=== PATIENT | male | born 1965 | race Caucasian/White ===

== ENCOUNTER 2021-02-09 13:55 | Day surgery (SDC) | payer BC ==
[2021-02-09] VITALS (11 sets, daily range): BP systolic 93–156; BP diastolic 56–87
[~2021-02-09] VITALS: Ht 176.5 cm; Wt 82.7 kg
[~2021-02-09 13:55] MED LIST: ASPI-1468 PO; CLIN150C2 PO; HYDR-3972 PO; IBUP-1985 PO; OMEP-50 PO; cefazolin/dext.iso 2gm/100ml IV ONE; famotidine 20mg tablet PO ONE; ringers solution, lacted 1,000 ML IV SCH
[2021-02-09 14:54] LABS: BASOPHILS # (AUTO) 0.1 X10'3 (0-0.2); BASOPHILS % (AUTO) 1.2 % (0-1); EOSINOPHILS # (AUTO) 0.3 X10'3 (0-0.9); EOSINOPHILS % (AUTO) 4.7 % (0-6); LYMPHOCYTES # (AUTO) 1.6 X10'3 (1.1-4.8); LYMPHOCYTES % (AUTO) 26.3 % (21-51); MEAN CORPUSCULAR HEMOGLOBIN 31.9 PG (27.0-31.0); MEAN CORPUSCULAR HGB CONC 33.8 g/dL (33.0-36.5); MEAN CORPUSCULAR VOLUME 94.3 FL (78-98); MEAN PLATELET VOLUME 7.7 FL (7.4-10.4); MONOCYTES # (AUTO) 0.5 X10'3 (0-0.9); MONOCYTES % (AUTO) 9.2 % (2-12); NEUTROPHILS # (AUTO) 3.5 X10'3 (1.8-7.7); NEUTROPHILS % (AUTO) 58.6 % (42-75); PRE OP HEMATOCRIT 42.4 % (42.0-52.0); PRE OP HEMOGLOBIN 14.3 g/dL (14.0-17.9); PRE OP PLATELET COUNT 297 X10'3 (140-440); RED BLOOD COUNT 4.49 X10'6 (4.70-6.10); RED CELL DISTRIBUTION WIDTH 14.2 % (11.5-14.5)
[2021-02-09 15:00] LABS: PRE OP INR 1.1 INR; PRE OP PROTIME 11.1 SECONDS (9.0-12.0)
--- NOTE | 2021-02-09 15:02 | NUR ---
ASA 325 MG R/T SURGERY ON 01/20. LAST DOSE THIS AM. Addendum: 02/09/21 at 1511 by Jenna Salvador RN Amended: Links added.
[2021-02-09 15:06] LABS: ALBUMIN 3.8 G/DL (3.4-5.0); ALBUMIN/GLOBULIN RATIO 0.9 (1.1-1.5); ALKALINE PHOSPHATASE 91 IU/L (46-116); BLOOD UREA NITROGEN 8 MG/DL (7-18); CALCIUM 8.8 MG/DL (8.5-10.1); CHLORIDE 106 MMOL/L (99-107); PRE OP ALT 19 U/L (30-65); PRE OP ANION GAP 13 (8-16); PRE OP AST 25 U/L (10-37); PRE OP BILIRUB, TOTAL 0.8 MG/DL (0.0-1.0); PRE OP GLUCOSE 81 MG/DL (70-104); PRE OP POTASSIUM 3.8 MMOL/L (3.4-5.1); PRE OP SODIUM 144 MMOL/L (135-145); TOTAL CARBON DIOXIDE 24.7 MMOL/L (24-32); TOTAL PROTEIN 7.9 G/DL (6.4-8.2); eGFR > 90 ML/MIN
--- NOTE | 2021-02-09 16:10 | NUR ---
received report from rodolfo rodrigues in recovery
[2021-02-09] MEDS ORDERED: HYDROcodone/acetaminophen 10/325mg tab PO PRN ×4 (16:15→23:10)
--- NOTE | 2021-02-09 17:19 | NUR ---
emma reynolds told me to keep the abx clamped for or to run when pt goes to surgery
--- NOTE | 2021-02-09 18:21 | NUR ---
gave report to rodolfo aldana
--- NOTE | 2021-02-09 18:40 | NUR ---
Patient in room ORTHO 4010. I have received report from Nila DOWLING and had the opportunity to ask questions and assume patient care.
[2021-02-09] MEDS ORDERED: morphine 4 MG/ML inj SYRINge IV PRN (21:30)
[2021-02-09] MEDS ORDERED: proCHLORperazine 10 MG/2 ml inj IV PRN (21:30)
[2021-02-09] MEDS ORDERED: ringers solution, lacted 1,000 ML IV SCH (21:30)
[2021-02-09] MEDS ORDERED: meperidine/PF 25mg/ml syringe IV PRN ×3 (21:30)
[2021-02-09] MEDS ORDERED: morphine 2 MG/ML inj. syringe IV PRN (21:30)
[2021-02-09] MEDS ORDERED: ondansetron/PF 4mg/2ml inj IV PRN ×2 (21:30→23:10)
[2021-02-09] MEDS ORDERED: BUPIVAcaine/PF 7.5mg/ml (0.75%) 10ml vial ONE (21:54)
[2021-02-09] MEDS ORDERED: MIDAZolam 1 MG/ML 5ML VIAL ONE (21:56)
[2021-02-09] MEDS ORDERED: fentaNYL/PF 50MCG/1 ML 2ML syringe ONE (21:56)
[2021-02-09] MEDS ORDERED: vancomycin 1,000mg inj ONE (22:23)
--- NOTE | 2021-02-09 22:53 | NUR ---
Received from OR via , accompanied by Anesthesiologist DR MARCIAL and report given by Anesthesiolgist. PT PRESENTS WITH 20G RIGHT WRIST, VSS, DRESSING TO RIGHT KNEE DRY AND INTACT. Addendum: 02/09/21 at 2300 by Saundra Quezada RN, RN Amended: Links added.
[2021-02-09] MEDS ORDERED: magnesium hydroxide 30ml (MOM) UD suspension PO PRN (23:10)
[2021-02-09] MEDS ORDERED: HYDROmorphone inj. 0.5 MG/0.5 ML DISP.SYRIN IV PRN (23:10)
[2021-02-09] MEDS ORDERED: acetaminophen 325mg tablet PO PRN (23:10)
[2021-02-09] MEDS ORDERED: bisacodyl 10mg suppository rectal RC PRN (23:10)
[2021-02-09] MEDS ORDERED: HYDROmorphone 1 mg/ml syringe IV PRN (23:10)
[2021-02-09] MEDS ORDERED: ibuprofen 200mg tablet PO PRN (23:10)
[2021-02-09] MEDS ORDERED: diphenhydrAMINE 25mg capsule PO PRN ×2 (23:10)
--- NOTE | 2021-02-09 23:57 | NUR ---
Received report from computer application developerJOSEY Arguello.
[2021-02-10] VITALS (11 sets, daily range): BP systolic 106–125; BP diastolic 61–80
--- NOTE | 2021-02-10 00:03 | NUR ---
PT TRANSPORTED BACK TO PT ROOM 4010 WITH HELP OF roomlinx AND BRIANA DOWLING. RITA DOWLING AT BEDSIDE TO RECEIVE REPORT WITH NO FURTHER QUESTIONS AT THIS TIME. PT VSS. Addendum: 02/10/21 at 0018 by Saundra Quezada RN RN Amended: Links added.
[2021-02-10] MEDS: ceFAZolin/D5W- 1GM premix 50 ML IV SCH ×2 (00:42→07:33)
[2021-02-10] MEDS: potassium cl 20mEq in 1/2 NS 1,000 ML IV SCH ×2 (00:43→07:10)
[2021-02-10] MEDS: clindamycin 150mg capsule PO SCH ×2 (02:07→07:33)
[2021-02-10] MEDS: acetaminophen 325mg tablet PO SCH ×2 (02:08→07:33)
--- NOTE | 2021-02-10 06:06 | NUR ---
Problems reprioritized. Patient report given, questions answered & plan of care reviewed with Ryne DOWLING.
--- NOTE | 2021-02-10 06:12 | NUR ---
Patient in room ORTH[facility] 4010. I have received report from JOSEY Richards and had the opportunity to ask questions and assume patient care.
[2021-02-10 07:02] LABS: BASOPHILS # (AUTO) 0.1 X10'3 (0-0.2); BASOPHILS % (AUTO) 1.1 % (0-1); EOSINOPHILS # (AUTO) 0.3 X10'3 (0-0.9); EOSINOPHILS % (AUTO) 6.1 % (0-6); HEMATOCRIT 39.7 % (42.0-52.0); HEMOGLOBIN 13.6 g/dl (14.0-17.9); LYMPHOCYTES # (AUTO) 1.3 X10'3 (1.1-4.8); LYMPHOCYTES % (AUTO) 25.9 % (21-51); MEAN CORPUSCULAR HEMOGLOBIN 32.3 PG (27.0-31.0); MEAN CORPUSCULAR HGB CONC 34.4 g/dL (33.0-36.5); MEAN PLATELET VOLUME 8.1 FL (7.4-10.4); MONOCYTES # (AUTO) 0.5 X10'3 (0-0.9); MONOCYTES % (AUTO) 9.6 % (2-12); NEUTROPHILS # (AUTO) 2.9 X10'3 (1.8-7.7); NEUTROPHILS % (AUTO) 57.3 % (42-75); PLATELET COUNT 275 X10'3 (140-440); RED BLOOD COUNT 4.22 X10'6 (4.70-6.10); RED CELL DISTRIBUTION WIDTH 13.9 % (11.5-14.5)
[2021-02-10 07:33] LABS: ANION GAP 7 (8-16); CHLORIDE 105 MMOL/L (99-107); POTASSIUM 4.6 MMOL/L (3.5-5.1); SODIUM 140 MMOL/L (135-145); TOTAL CARBON DIOXIDE 28.1 MMOL/L (24-32)
[2021-02-10] MEDS ORDERED: vancomycin/NS 1 GM ADD-VANTAGE 250 ML IV SCH (08:00)
[2021-02-10] MEDS ORDERED: aspirin 325mg tablet, delayed-release (Ecotrin) PO SCH (08:00)
[2021-02-10] MEDS ORDERED: aspirin 325mg tablet PO SCH (08:30)
[2021-02-10] MEDS ORDERED: CLIN-156 PO (09:45)
--- NOTE | 2021-02-10 10:27 | NUR ---
Patient alert and oriented with no s/s of acute distress. Denies any pain or discomfort at this time and no complaints. Discussed with patient discharge teaching, new prescription, how to care for VONNIE drain. Patient in hurry to leave states daughter in law here with baby in car and does not want them wait and also has animals that need to be fed. But patient verbalizes understanding of teaching and able to return demonstrate emptying of VONNIE drain and states has no questions regarding discharge teaching. He states he was instructed by Blessing Fisher "to not touch dressing until Sunday." Patient dc'd with all personal belongings via wheelchair accompanied by x2 staff. Patient daughter in law ehre to moss picker.
[2021-02-10] MEDS ORDERED: lactobacillus rhamnosus 10,000 MMU CELLS/CAPSULE PO SCH (20:00)
[2021-02-10] MEDS ORDERED: sennosides 8.6mg tablet PO SCH (21:00)
[2021-02-11] MEDS ORDERED: acetaminophen 325mg tablet PO PRN (23:10)
== END 2021-02-10 10:32 | disposition home or self-care (01) ==
LOC: PAS 13:55 → ORTHO 4S 18:13 → UNDOADMIN 23:07 → PAS 23:22
PROVIDERS: ATTEND Orthopaedic Surgery
DX: T81.31XA Disruption of external operation (surgical) wound, not elsewhere classified, initial encounter (principal); M17.11 Unilateral primary osteoarthritis, right knee; F17.220 Nicotine dependence, chewing tobacco, uncomplicated; Z72.89 Other problems related to lifestyle; Z79.01 Long term (current) use of anticoagulants; Z79.899 Other long term (current) drug therapy; Z98.890 Other specified postprocedural states; Z79.82 Long term (current) use of aspirin; Y83.2 Surgical operation with anastomosis, bypass or graft as the cause of abnormal reaction of the patient, or of later complication, without mention of misadventure at the time of the procedure; Y92.89 Other specified places as the place of occurrence of the external cause
CPT/HCPCS: 27310; 36415; 80051; 80053; 82948; 85025; 85610; 85730; 87081; 87426; 93005; A6223; J0690; J2250; J3010; J3370; J3490; J7120; A4215; A6402; A6446; A6449; A7000; G0378; J3480

== ENCOUNTER 2021-04-15 12:43 | Inpatient (IN) | payer BC ==
[~2021-04-15] VITALS: Ht 175.3 cm; Wt 84.3 kg
[~2021-04-15 12:43] MED LIST changes: -ASPI-1468 PO; -CLIN150C2 PO; -IBUP-1985 PO; -OMEP-50 PO; -cefazolin/dext.iso 2gm/100ml IV ONE; -famotidine 20mg tablet PO ONE; -ringers solution, lacted 1,000 ML IV SCH
[2021-04-15 18:10] VITALS: BP 138/83
--- NOTE | 2021-04-15 18:10 | NUR ---
Patient walked up to unit by nursing supervisor screen making. Patient placed into bed, bed locked & low. Call light placed within reach.
[2021-04-15] MEDS ORDERED: acetaminophen 325mg tablet PO PRN (19:10)
[2021-04-15] MEDS ORDERED: ringers solution, lactated 500ml IV solution IV SCH (19:35)
[2021-04-15] MEDS: ringers solution, lacted 1,000 ML IV SCH (21:43)
[2021-04-15] MEDS: HYDROcodone/acetaminophen 5mg/325mg tablet PO PRN (21:43)
[2021-04-15 22:00] VITALS: BP 136/85
[2021-04-15] MEDS ORDERED: ringers solution, lacted 1,000 ML IV ONE (22:45)
[2021-04-16] VITALS (14 sets, daily range): BP systolic 109–143; BP diastolic 65–97
[2021-04-16] MEDS: HYDROcodone/acetaminophen 5mg/325mg tablet PO PRN ×2 (02:22→05:52)
[2021-04-16] MEDS ORDERED: famotidine 20mg tablet PO ONE (06:00)
[2021-04-16 06:12] LABS: BASOPHILS % (AUTO) 0.5 % (0-1); EOSINOPHILS # (AUTO) 0.2 X10'3 (0-0.9); EOSINOPHILS % (AUTO) 3.2 % (0-6); LYMPHOCYTES # (AUTO) 1.3 X10'3 (1.1-4.8); MEAN CORPUSCULAR HEMOGLOBIN 30.2 PG (27.0-31.0); MEAN CORPUSCULAR HGB CONC 34.1 g/dL (33.0-36.5); MEAN CORPUSCULAR VOLUME 88.7 FL (78-98); MEAN PLATELET VOLUME 7.8 FL (7.4-10.4); MONOCYTES # (AUTO) 0.7 X10'3 (0-0.9); MONOCYTES % (AUTO) 10.1 % (2-12); NEUTROPHILS # (AUTO) 4.4 X10'3 (1.8-7.7); NEUTROPHILS % (AUTO) 66.2 % (42-75); PRE OP PLATELET COUNT 338 X10'3 (140-440); RED BLOOD COUNT 4.63 X10'6 (4.70-6.10)
--- NOTE | 2021-04-16 06:12 | NUR ---
Problems reprioritized. Patient report given, questions answered & plan of care reviewed with Adama DOWLING.
[2021-04-16] MEDS ORDERED: tranexamic acid 650mg tablet PO ONE (06:30)
[2021-04-16 06:37] LABS: ALANINE AMINOTRANSFERASE 25 U/L (12-78); ALBUMIN 3.1 G/DL (3.4-5.0); ALBUMIN/GLOBULIN RATIO 0.6 (1.1-1.5); ALKALINE PHOSPHATASE 116 IU/L (46-116); ANION GAP 8 (8-16); ASPARTATE AMINO TRANSFERASE 23 U/L (10-37); BILIRUBIN,TOTAL 0.5 MG/DL (0.1-1.0); BLOOD UREA NITROGEN 6 MG/DL (7-18); BUN/CREATININE RATIO 8.6 (5.4-32.0); CALCIUM 8.7 MG/DL (8.5-10.1); CHLORIDE 106 MMOL/L (99-107); GLUCOSE 85 MG/DL (70-104); POTASSIUM 4.7 MMOL/L (3.5-5.1); SODIUM 143 MMOL/L (135-145); TOTAL CARBON DIOXIDE 29.5 MMOL/L (24-32); TOTAL PROTEIN 7.9 G/DL (6.4-8.2); eGFR > 90 ML/MIN
[2021-04-16] MEDS ORDERED: ketorolac trometh. 30mg/ml inj. ONE (06:40)
[2021-04-16] MEDS ORDERED: vancomycin 1,000mg inj ONE (06:40)
[2021-04-16] MEDS ORDERED: ROPIVAcaine 0.5% (5mg/ml) 30ml vial ONE ×2 (06:40→10:22)
[2021-04-16] MEDS ORDERED: tobramycin sulfate 1.2gm vial IR ONE ×2 (06:43→08:54)
[2021-04-16] MEDS: ringers solution, lacted 1,000 ML IV SCH ×2 (06:50→16:50)
[2021-04-16] MEDS ORDERED: MIDAZolam 1mg/ml 10ml vial ONE (07:59)
[2021-04-16] MEDS ORDERED: fentaNYL/PF 50MCG/1 ML 2ML syringe ONE (07:59)
[2021-04-16] MEDS ORDERED: Cefazolin 2GM/100ML NS IVPB 100 ML IV ONE (08:10)
[2021-04-16] MEDS ORDERED: ROPIVAcaine 0.2% (10 MG/5 ML) BOLUS INJECTION ADDCANAL PRN (08:25)
[2021-04-16] MEDS ORDERED: meperidine/PF 25mg/ml syringe IV PRN ×3 (08:25)
[2021-04-16] MEDS ORDERED: ondansetron/PF 4mg/2ml inj IV PRN ×2 (08:25→10:30)
[2021-04-16] MEDS ORDERED: morphine 4 MG/ML inj SYRINge IV PRN (08:25)
[2021-04-16] MEDS ORDERED: ringers solution, lacted 1,000 ML IV SCH (08:25)
[2021-04-16] MEDS ORDERED: proCHLORperazine 10 MG/2 ml inj IV PRN (08:25)
[2021-04-16] MEDS: ROPIVAcaine 0.2%/PF PUMP/bolus 545 ML ADDCANAL SCH (08:25)
[2021-04-16] MEDS ORDERED: morphine 2 MG/ML inj. syringe IV PRN (08:25)
[2021-04-16] MEDS ORDERED: cefazolin/dext.iso 2gm/100ml 100 ML IV ONE (08:29)
[2021-04-16 10:16] LABS: LYMPHOCYTES,BODY FLUID 5 %; MONOCYTES,BODY FLUID 2 %; NEUTROPHILS,BODY FLUID 93 %
[2021-04-16 10:17] LABS: BF RBC COUNT 24000 /CU MM; BF WBC COUNT 68500 /CU MM (0-1000); BFAPPEAR CLOUDY; BFCOLOR AMBER; BFVOLUME 13 ML
[2021-04-16] MEDS ORDERED: dexamethasone sod phosphate 4mg/ml inj. ONE (10:23)
--- NOTE | 2021-04-16 10:27 | NUR ---
PT AWAKE ALERT VSS NO DISTRESS DENIES PAIN, SPINAL LEVEL CHECK L1 UNABLE TO MOVE LOWER EXTR. CONT TO MONITOR Addendum: 04/16/21 at 1046 by Sabrina Parkinson RN Amended: Links added.
[2021-04-16] MEDS ORDERED: bisacodyl 10mg suppository rectal RC PRN (10:30)
[2021-04-16] MEDS ORDERED: diphenhydrAMINE 25mg capsule PO PRN ×2 (10:30)
[2021-04-16] MEDS ORDERED: oxyCODONE IR 5mg (immed. release) tablet PO PRN ×2 (10:30)
[2021-04-16] MEDS ORDERED: HYDROmorphone inj. 0.5 MG/0.5 ML DISP.SYRIN IV PRN (10:30)
[2021-04-16] MEDS ORDERED: acetaminophen 325mg tablet PO PRN (10:30)
[2021-04-16] MEDS ORDERED: HYDROmorphone 1 mg/ml syringe IV PRN (10:30)
[2021-04-16] MEDS ORDERED: magnesium hydroxide 30ml (MOM) UD suspension PO PRN (10:30)
--- NOTE | 2021-04-16 10:51 | NUR ---
PT ALERT VSS NO DISTRESS ASKING WHEN IS LUNCH, VONNIE EMPTIED 75ML BLOODY DRAINAGE, VALLE CATH EMPTY 500ML CLEAR YELLOW URINE, SPINAL LEVEL L2. MEETS CRITERIA TO DC TO ROOM REPORT CALLED. Addendum: 04/16/21 at 1053 by Sabrina Parkinson RN Amended: Links added.
[2021-04-16] MEDS: potassium cl 20mEq in 1/2 NS 1,000 ML IV SCH (14:56)
[2021-04-16] MEDS: acetaminophen 325mg tablet PO SCH ×2 (14:56→20:11)
[2021-04-16] MEDS: ceFAZolin/D5W- 1GM premix 50 ML IV SCH (16:09)
--- NOTE | 2021-04-16 18:49 | NUR ---
RC'D REPORT FROM DARLYN AND ASSUMED CARE OF PATIENT
[2021-04-16] MEDS ORDERED: vancomycin/NS 1 GM ADD-VANTAGE 250 ML IV SCH (20:00)
[2021-04-16] MEDS: sennosides 8.6mg tablet PO SCH (20:11)
[2021-04-17] MEDS: ceFAZolin/D5W- 1GM premix 50 ML IV SCH
[2021-04-17] MEDS: HYDROcodone/acetaminophen 5mg/325mg tablet PO PRN (00:14)
[2021-04-17 02:00] VITALS: BP 122/68
[2021-04-17] MEDS: acetaminophen 325mg tablet PO SCH ×4 (02:00→20:00)
[2021-04-17] MEDS: potassium cl 20mEq in 1/2 NS 1,000 ML IV SCH ×4 (02:25→16:11)
[2021-04-17] MEDS: ringers solution, lacted 1,000 ML IV SCH ×3 (02:50→22:50)
[2021-04-17] MEDS: HYDROcodone/acetaminophen 10/325mg tab PO PRN ×3 (05:21→20:29)
[2021-04-17 06:00] VITALS: BP 132/77
--- NOTE | 2021-04-17 06:40 | NUR ---
Patient in room ORTH[facility] 4016. I have received report from Alina DOWLING and had the opportunity to ask questions and assume patient care.
[2021-04-17 06:56] LABS: BASOPHILS % (AUTO) 0.2 % (0-1); EOSINOPHILS % (AUTO) 0.1 % (0-6); HEMATOCRIT 37.2 % (42.0-52.0); HEMOGLOBIN 12.8 g/dl (14.0-17.9); LYMPHOCYTES # (AUTO) 0.9 X10'3 (1.1-4.8); MEAN CORPUSCULAR HEMOGLOBIN 30.6 PG (27.0-31.0); MEAN CORPUSCULAR HGB CONC 34.5 g/dL (33.0-36.5); MEAN CORPUSCULAR VOLUME 88.7 FL (78-98); MEAN PLATELET VOLUME 8.2 FL (7.4-10.4); MONOCYTES # (AUTO) 0.3 X10'3 (0-0.9); MONOCYTES % (AUTO) 3.2 % (2-12); NEUTROPHILS # (AUTO) 9.2 X10'3 (1.8-7.7); NEUTROPHILS % (AUTO) 87.5 % (42-75); PLATELET COUNT 360 X10'3 (140-440); RED BLOOD COUNT 4.19 X10'6 (4.70-6.10); RED CELL DISTRIBUTION WIDTH 13.1 % (11.5-14.5); WHITE BLOOD COUNT 10.5 X10'3 (4.5-11.0)
[2021-04-17 07:08] LABS: ANION GAP 8 (8-16); CHLORIDE 108 MMOL/L (99-107); POTASSIUM 4.2 MMOL/L (3.5-5.1); SODIUM 144 MMOL/L (135-145); TOTAL CARBON DIOXIDE 28.5 MMOL/L (24-32)
[2021-04-17] MEDS: aspirin 325mg tablet PO SCH (08:19)
[2021-04-17] MEDS: VANCOmycin 1250MG/NS 250ml Bag 250 ML IV SCH ×2 (08:19→20:28)
[2021-04-17 10:00] VITALS: BP 122/72
--- NOTE | 2021-04-17 11:01 | NUR ---
got a call from lab, pt knee fluid had gram negative rods wont be able to identify for couple of days , has been notified
[2021-04-17 18:00] VITALS: BP 135/83
--- NOTE | 2021-04-17 18:13 | NUR ---
Problems reprioritized. Patient report given, questions answered & plan of care reviewed with Marion DOWLING.
--- NOTE | 2021-04-17 18:31 | NUR ---
Patient in room ORTH[facility] 4016. I have received report from JOSEY PEDERSEN and had the opportunity to ask questions and assume patient care.
[2021-04-17] MEDS: sennosides 8.6mg tablet PO SCH (20:28)
[2021-04-17] MEDS: lactobacillus rhamnosus 10,000 MMU CELLS/CAPSULE PO SCH (20:28)
[2021-04-17] MEDS: celeCOXIB 100mg capsule PO SCH (20:29)
[2021-04-17 22:00] VITALS: BP 137/91
[2021-04-18] MEDS: acetaminophen 325mg tablet PO SCH ×2 (02:00→07:47)
[2021-04-18] MEDS: potassium cl 20mEq in 1/2 NS 1,000 ML IV SCH (02:30)
[2021-04-18] MEDS: HYDROcodone/acetaminophen 10/325mg tab PO PRN ×3 (05:13→20:45)
[2021-04-18 06:10] VITALS: BP 135/77
--- NOTE | 2021-04-18 06:45 | NUR ---
Patient in room ORTH[facility] 4016. I have received report from Marion DOWLING and had the opportunity to ask questions and assume patient care.
[2021-04-18] MEDS ORDERED: VANCOMYCIN LEVEL IV ONE (07:30)
[2021-04-18] MEDS: celeCOXIB 100mg capsule PO SCH ×2 (07:46→20:45)
[2021-04-18] MEDS: aspirin 325mg tablet PO SCH (07:46)
[2021-04-18] MEDS: lactobacillus rhamnosus 10,000 MMU CELLS/CAPSULE PO SCH ×2 (07:46→20:45)
[2021-04-18] MEDS: VANCOmycin 1250MG/NS 250ml Bag 250 ML IV SCH (07:47)
[2021-04-18 08:17] LABS: BASOPHILS # (AUTO) 0.1 X10'3 (0-0.2); BASOPHILS % (AUTO) 0.8 % (0-1); EOSINOPHILS # (AUTO) 0.2 X10'3 (0-0.9); EOSINOPHILS % (AUTO) 2.4 % (0-6); HEMATOCRIT 37.4 % (42.0-52.0); HEMOGLOBIN 12.5 g/dl (14.0-17.9); LYMPHOCYTES % (AUTO) 23.8 % (21-51); MEAN CORPUSCULAR HEMOGLOBIN 29.8 PG (27.0-31.0); MEAN CORPUSCULAR HGB CONC 33.3 g/dL (33.0-36.5); MEAN CORPUSCULAR VOLUME 89.4 FL (78-98); MEAN PLATELET VOLUME 7.8 FL (7.4-10.4); MONOCYTES # (AUTO) 0.9 X10'3 (0-0.9); MONOCYTES % (AUTO) 10.4 % (2-12); NEUTROPHILS # (AUTO) 5.3 X10'3 (1.8-7.7); NEUTROPHILS % (AUTO) 62.6 % (42-75); PLATELET COUNT 350 X10'3 (140-440); RED BLOOD COUNT 4.18 X10'6 (4.70-6.10); RED CELL DISTRIBUTION WIDTH 13.4 % (11.5-14.5); WHITE BLOOD COUNT 8.5 X10'3 (4.5-11.0)
[2021-04-18] MEDS: ringers solution, lacted 1,000 ML IV SCH ×2 (08:50→18:50)
[2021-04-18 10:00] VITALS: BP 121/76
[2021-04-18] MEDS ORDERED: acetaminophen 325mg tablet PO PRN (10:30)
[2021-04-18] MEDS: cefepime 2g/NS 100ml ADVANTAGE 100 ML IV SCH ×2 (16:16→23:54)
[2021-04-18 18:00] VITALS: BP 139/87
[2021-04-18] MEDS: sennosides 8.6mg tablet PO SCH (21:00)
[2021-04-18 22:00] VITALS: BP 128/71
[2021-04-19] MEDS: HYDROcodone/acetaminophen 10/325mg tab PO PRN ×2 (02:45→14:06)
[2021-04-19] MEDS: ROPIVAcaine 0.2%/PF PUMP/bolus 545 ML ADDCANAL SCH (05:25)
[2021-04-19 06:00] VITALS: BP 116/78
--- NOTE | 2021-04-19 06:35 | NUR ---
Problems reprioritized. Patient report given, questions answered & plan of care reviewed with JOSEY BUTLER.
[2021-04-19 07:00] LABS: BASOPHILS # (AUTO) 0.1 X10'3 (0-0.2); BASOPHILS % (AUTO) 0.9 % (0-1); EOSINOPHILS # (AUTO) 0.2 X10'3 (0-0.9); EOSINOPHILS % (AUTO) 2.8 % (0-6); HEMATOCRIT 36.3 % (42.0-52.0); HEMOGLOBIN 12.1 g/dl (14.0-17.9); LYMPHOCYTES # (AUTO) 1.6 X10'3 (1.1-4.8); LYMPHOCYTES % (AUTO) 19.2 % (21-51); MEAN CORPUSCULAR HEMOGLOBIN 30.3 PG (27.0-31.0); MEAN CORPUSCULAR HGB CONC 33.4 g/dL (33.0-36.5); MEAN CORPUSCULAR VOLUME 90.7 FL (78-98); MEAN PLATELET VOLUME 7.9 FL (7.4-10.4); MONOCYTES % (AUTO) 11.6 % (2-12); NEUTROPHILS # (AUTO) 5.6 X10'3 (1.8-7.7); NEUTROPHILS % (AUTO) 65.5 % (42-75); PLATELET COUNT 350 X10'3 (140-440); RED CELL DISTRIBUTION WIDTH 13.6 % (11.5-14.5); WHITE BLOOD COUNT 8.5 X10'3 (4.5-11.0)
[2021-04-19 07:20] LABS: ALBUMIN 2.8 G/DL (3.4-5.0); ANION GAP 6 (8-16); BLOOD UREA NITROGEN 5 MG/DL (7-18); BUN/CREATININE RATIO 6.1 (5.4-32.0); CALCIUM 8.9 MG/DL (8.5-10.1); CHLORIDE 107 MMOL/L (99-107); CREATININE 0.82 MG/DL (0.60-1.10); GLUCOSE 97 MG/DL (70-104); POTASSIUM 4.1 MMOL/L (3.5-5.1); SODIUM 143 MMOL/L (135-145); TOTAL CARBON DIOXIDE 30.2 MMOL/L (24-32); eGFR > 90 ML/MIN
[2021-04-19] MEDS ORDERED: ASPI-1 PO (07:27)
[2021-04-19] MEDS: lactobacillus rhamnosus 10,000 MMU CELLS/CAPSULE PO SCH (08:16)
[2021-04-19] MEDS: aspirin 325mg tablet PO SCH (08:16)
[2021-04-19] MEDS: celeCOXIB 100mg capsule PO SCH (08:16)
[2021-04-19] MEDS: cefepime 2g/NS 100ml ADVANTAGE 100 ML IV SCH (08:17)
[2021-04-19] MEDS: ringers solution, lacted 1,000 ML IV SCH (08:22)
[2021-04-19 10:00] VITALS: BP 122/81
[2021-04-19] MEDS ORDERED: ciprofloxacin 250mg tablet PO SCH (10:22)
[2021-04-19] MEDS ORDERED: CIPR750T4 PO (14:30)
[2021-04-20] MEDS ORDERED: VANCOMYCIN LEVEL IV ONE (07:30)
== END 2021-04-19 15:30 | disposition home or self-care (01) | DRG 464 ==
LOC: UNDOADMIN 18:14 → ORTHO 4S 18:14
PROVIDERS: ADMIT Orthopaedic Surgery; ATTEND Orthopaedic Surgery
PROC: 0SHC08Z Insertion of Spacer into Right Knee Joint, Open Approach (ICD-10-PCS; 2021-04-16)
PROC: 3E0T3BZ Introduction of Anesthetic Agent into Peripheral Nerves and Plexi, Percutaneous Approach (ICD-10-PCS; 2021-04-16)
PROC: 3E0T33Z Introduction of Anti-inflammatory into Peripheral Nerves and Plexi, Percutaneous Approach (ICD-10-PCS; 2021-04-16)
PROC: 0SPC0JZ Removal of Synthetic Substitute from Right Knee Joint, Open Approach (ICD-10-PCS; principal; 2021-04-16 07:50)
DX: T84.53XA Infection and inflammatory reaction due to internal right knee prosthesis, initial encounter (principal); D62 Acute posthemorrhagic anemia; M65.861 Other synovitis and tenosynovitis, right lower leg; B96.5 Pseudomonas (aeruginosa) (mallei) (pseudomallei) as the cause of diseases classified elsewhere; Z96.651 Presence of right artificial knee joint; Y83.1 Surgical operation with implant of artificial internal device as the cause of abnormal reaction of the patient, or of later complication, without mention of misadventure at the time of the procedure; Y92.89 Other specified places as the place of occurrence of the external cause; Z79.899 Other long term (current) drug therapy
CPT/HCPCS: 36415; 80048; 80051; 80053; 80202; 82948; 85025; 85651; 86140; 87070; 87075; 87077; 87081; 87176; 87186; 87635; 89051; 93005; 97116; 97161; 97530; G0378; J0690; J0692; J1100; J1885; J2250; J2795; J3010; J3260; J3370; J3480; J7120

== ENCOUNTER 2023-10-08 10:59 | Inpatient (IN) | payer BC ==
[2023-10-08] VITALS (17 sets, daily range): BP systolic 90–138; BP diastolic 54–86; PULSE 42–60; RESP 14–17; TEMP 96.5–98.4; O2SAT 63–99
[~2023-10-08] VITALS: Ht 175.3 cm; Wt 84.4 kg
[2023-10-08] MEDS: DOCUMENT DATE & TIME OF BETA-BLOCKER PO ONE (05:30)
[2023-10-08] MEDS: cefazolin 2gm/D5W 100mL 100 ML IV ONE (05:30)
[2023-10-08] MEDS: ringers solution, lacted 1,000 ML IV SCH ×3 (05:30→16:40)
[~2023-10-08 10:59] MED LIST changes: +BUPIVAcaine/PF 2.5mg/ml (0.25%) 10ml vial ONE; -HYDR-3972 PO; +METO-539 PO; +VALS80TA2 PO
[2023-10-08] MEDS: famotidine 20mg tablet PO ONE (12:50)
[2023-10-08 13:12] LABS: BASOPHILS # (AUTO) 0.1 X10'3 (0-0.2); BASOPHILS % (AUTO) 0.8 % (0-1); EOSINOPHILS # (AUTO) 0.4 X10'3 (0-0.9); EOSINOPHILS % (AUTO) 5.4 % (0-6); LYMPHOCYTES # (AUTO) 1.7 X10'3 (1.1-4.8); LYMPHOCYTES % (AUTO) 21.7 % (21-51); MEAN CORPUSCULAR HEMOGLOBIN 30.4 PG (27.0-31.0); MEAN CORPUSCULAR HGB CONC 33.2 g/dL (33.0-36.5); MEAN CORPUSCULAR VOLUME 91.4 FL (78-98); MEAN PLATELET VOLUME 7.6 FL (7.4-10.4); MONOCYTES # (AUTO) 0.7 X10'3 (0-0.9); MONOCYTES % (AUTO) 8.4 % (2-12); NEUTROPHILS # (AUTO) 5.1 X10'3 (1.8-7.7); NEUTROPHILS % (AUTO) 63.7 % (42-75); PRE OP HEMATOCRIT 42.8 % (42.0-52.0); PRE OP HEMOGLOBIN 14.2 g/dL (14.0-17.9); PRE OP PLATELET COUNT 332 X10'3 (140-440); PRE OP WHITE BLOOD COUNT 7.9 10'3 (4.8-10.8); RED BLOOD COUNT 4.68 X10'6 (4.70-6.10); RED CELL DISTRIBUTION WIDTH 13.4 % (11.5-14.5)
[2023-10-08] MEDS: tranexamic acid 650mg tablet PO ONE (13:12)
[2023-10-08 13:45] LABS: ALBUMIN 3.3 G/DL (3.4-5.0); ALBUMIN/GLOBULIN RATIO 0.6 (1.1-1.5); ALKALINE PHOSPHATASE 97 IU/L (46-116); BLOOD UREA NITROGEN 12 MG/DL (7-18); C-REACTIVE PROTEIN 4.34 MG/DL (0.0-0.5); CALCIUM 9.6 MG/DL (8.5-10.1); CHLORIDE 105 MMOL/L (99-107); CREATININE 0.86 MG/DL (0.60-1.10); PRE OP ALT 25 U/L (30-65); PRE OP ANION GAP 11 (8-16); PRE OP AST 22 U/L (10-37); PRE OP BILIRUB, TOTAL 0.4 MG/DL (0.0-1.0); PRE OP GLUCOSE 83 MG/DL (70-104); PRE OP POTASSIUM 3.9 MMOL/L (3.4-5.1); PRE OP SODIUM 143 MMOL/L (135-145); TOTAL CARBON DIOXIDE 26.7 MMOL/L (24-32); TOTAL PROTEIN 8.4 G/DL (6.4-8.2); eCRCL 95 ML/MIN; eGFR > 90 ML/MIN
[2023-10-08] MEDS ORDERED: ketorolac trometh. 30mg/ml inj. ONE (14:19)
[2023-10-08] MEDS ORDERED: ROPIVAcaine 0.5% (5mg/ml) 30ml vial ONE ×3 (14:19→17:10)
[2023-10-08] MEDS ORDERED: vancomycin 1,000mg inj ONE (15:31)
[2023-10-08] MEDS ORDERED: tobramycin sulfate 1.2gm vial ONE (15:31)
[2023-10-08] MEDS ORDERED: cloNIDine hcl/PF 100mcg/ml inj ONE (15:35)
[2023-10-08] MEDS ORDERED: labetalol 20mg/4ml (5mg/ml) syringe IV PRN (15:40)
[2023-10-08] MEDS ORDERED: ondansetron/PF 4mg/2ml inj IV PRN ×2 (15:40→16:40)
[2023-10-08] MEDS ORDERED: morphine 2 MG/ML inj. syringe IV PRN ×2 (15:40→16:40)
[2023-10-08] MEDS ORDERED: hydrALAZINE 20mg/ml inj. IV PRN ×2 (15:40→16:40)
[2023-10-08] MEDS ORDERED: proCHLORperazine 10 MG/2 ml inj IV PRN (15:40)
[2023-10-08] MEDS: acetaminophen 1,000mg/100ml IV 100 ML IV ONE (15:40)
[2023-10-08] MEDS ORDERED: meperidine/PF 25mg/ml syringe IV PRN ×3 (15:40)
[2023-10-08] MEDS ORDERED: morphine 4 MG/ML inj SYRINge IV PRN ×2 (15:40→16:40)
[2023-10-08] MEDS ORDERED: tetracaine 1% (10mg/ml) pres. free inj. ONE (15:49)
[2023-10-08] MEDS ORDERED: MIDAZolam 1mg/ml 10ml vial ONE ×2 (15:52→16:32)
[2023-10-08] MEDS ORDERED: fentaNYL /PF 50mcg/ml 5ml ampule ONE (15:52)
[2023-10-08] MEDS ORDERED: tobramycin 40mg/ml inj ONE (16:32)
[2023-10-08] MEDS ORDERED: fentaNYL/PF 50MCG/1 ML 2ML syringe IV PRN ×2 (16:40)
[2023-10-08] MEDS ORDERED: enalaprilat dihydrate 2.5mg/2ml vial IV PRN (16:40)
[2023-10-08] MEDS: tobramycin sulfate 1.2gm vial TP ONE (17:15)
[2023-10-08] MEDS ORDERED: diphenhydrAMINE 25mg capsule PO PRN ×2 (19:30)
[2023-10-08] MEDS ORDERED: bisacodyl 10mg suppository rectal RC PRN (19:30)
[2023-10-08] MEDS ORDERED: HYDROmorphone inj. 0.5 MG/0.5 ML DISP.SYRIN IV PRN (19:30)
[2023-10-08] MEDS ORDERED: magnesium hydroxide 30ml (MOM) UD suspension PO PRN (19:30)
[2023-10-08] MEDS ORDERED: naloxone 0.4 mg/ml inj IV PRN (19:30)
[2023-10-08] MEDS: sennosides 8.6mg tablet PO SCH (22:11)
[2023-10-08] MEDS: acetaminophen 325mg tablet PO SCH (22:12)
[2023-10-08] MEDS: potassium cl 20mEq in 1/2 NS 1,000 ML IV SCH (22:14)
[2023-10-08] MEDS: oxyCODONE IR 5mg (immed. release) tablet PO PRN (23:39)
[2023-10-08] MEDS: ceFAZolin/D5W- 1GM premix 50 ML IV SCH (23:45)
[2023-10-09] VITALS (7 sets, daily range): BP systolic 97–119; BP diastolic 58–81; PULSE 58–93; RESP 13–18; TEMP 97–100.1; O2SAT 93–96
[2023-10-09] MEDS: HYDROmorphone 1 mg/ml syringe IV PRN (00:16)
[2023-10-09 06:06] LABS: BASOPHILS % (AUTO) 0.7 % (0-1); EOSINOPHILS # (AUTO) 0.1 X10'3 (0-0.9); EOSINOPHILS % (AUTO) 1.3 % (0-6); HEMATOCRIT 35.4 % (42.0-52.0); LYMPHOCYTES # (AUTO) 1.1 X10'3 (1.1-4.8); LYMPHOCYTES % (AUTO) 15.3 % (21-51); MEAN CORPUSCULAR HGB CONC 33.8 g/dL (33.0-36.5); MEAN CORPUSCULAR VOLUME 91.8 FL (78-98); MEAN PLATELET VOLUME 7.6 FL (7.4-10.4); MONOCYTES # (AUTO) 0.7 X10'3 (0-0.9); MONOCYTES % (AUTO) 9.5 % (2-12); NEUTROPHILS # (AUTO) 5.4 X10'3 (1.8-7.7); NEUTROPHILS % (AUTO) 73.2 % (42-75); PLATELET COUNT 293 X10'3 (140-440); RED BLOOD COUNT 3.86 X10'6 (4.70-6.10); RED CELL DISTRIBUTION WIDTH 12.9 % (11.5-14.5); WHITE BLOOD COUNT 7.4 X10'3 (4.5-11.0)
[2023-10-09 06:34] LABS: ALBUMIN 2.8 G/DL (3.4-5.0); ANION GAP 5 (8-16); BLOOD UREA NITROGEN 11 MG/DL (7-18); BUN/CREATININE RATIO 13.3 (10.0-20.0); C-REACTIVE PROTEIN 4.55 MG/DL (0.0-0.5); CALCIUM 8.9 MG/DL (8.5-10.1); CHLORIDE 105 MMOL/L (99-107); CREATININE 0.83 MG/DL (0.60-1.10); GLUCOSE 137 MG/DL (70-104); POTASSIUM 4.5 MMOL/L (3.5-5.1); SODIUM 139 MMOL/L (135-145); TOTAL CARBON DIOXIDE 29.4 MMOL/L (24-32); eCRCL 98 ML/MIN; eGFR > 90 ML/MIN
[2023-10-09] MEDS: cefepime 2g/NS 100ml ADVANTAGE 100 ML IV SCH (08:48)
[2023-10-09] MEDS: metoprolol succinate 25mg (24-HOUR) SR. Tablet PO SCH (08:49)
[2023-10-09] MEDS: losartan 50mg tablet PO SCH (08:49)
[2023-10-09] MEDS: celeCOXIB 100mg capsule PO SCH (20:25)
[2023-10-10] MEDS: ondansetron/PF 4mg/2ml inj IV PRN (03:32)
[2023-10-10] MEDS: oxyCODONE IR 5mg (immed. release) tablet PO PRN (05:58)
[2023-10-10 06:34] LABS: BASOPHILS % (AUTO) 0.3 % (0-1); EOSINOPHILS # (AUTO) 0.1 X10'3 (0-0.9); EOSINOPHILS % (AUTO) 0.9 % (0-6); HEMATOCRIT 34.2 % (42.0-52.0); HEMOGLOBIN 11.5 g/dl (14.0-17.9); LYMPHOCYTES # (AUTO) 0.1 X10'3 (1.1-4.8); LYMPHOCYTES % (AUTO) 1.6 % (21-51); MEAN CORPUSCULAR HEMOGLOBIN 30.5 PG (27.0-31.0); MEAN CORPUSCULAR HGB CONC 33.7 g/dL (33.0-36.5); MEAN CORPUSCULAR VOLUME 90.5 FL (78-98); MEAN PLATELET VOLUME 7.8 FL (7.4-10.4); MONOCYTES # (AUTO) 0.3 X10'3 (0-0.9); MONOCYTES % (AUTO) 5.3 % (2-12); NEUTROPHILS # (AUTO) 5.4 X10'3 (1.8-7.7); NEUTROPHILS % (AUTO) 91.9 % (42-75); PLATELET COUNT 234 X10'3 (140-440); RED BLOOD COUNT 3.78 X10'6 (4.70-6.10); RED CELL DISTRIBUTION WIDTH 13.2 % (11.5-14.5); WHITE BLOOD COUNT 5.9 X10'3 (4.5-11.0)
[2023-10-10 06:46] VITALS: BP 121/62; PULSE 101; RESP 18; TEMP 99.9; O2SAT 96
[2023-10-10 07:18] LABS: HIV ANTIBODY 1&2 RAPID NON-REACTIVE (Neg)
[2023-10-10 08:19] VITALS: RESP 18; O2SAT 96
[2023-10-10] MEDS ORDERED: acetaminophen 325mg tablet PO PRN (08:25)
[2023-10-10] MEDS: fluconazole 100mg tablet PO SCH (09:51)
[2023-10-10 10:00] VITALS: BP 103/63; PULSE 70; RESP 18; TEMP 99.2; O2SAT 97
[2023-10-10] MEDS: NORMAL SALINE IV SCH (12:13)
[2023-10-10] MEDS: DAPTOMYCIN IV SCH (12:13)
[2023-10-10] MEDS: acetaminophen 325mg tablet PO PRN (20:08)
[2023-10-11 06:38] VITALS: BP 113/36; PULSE 89; RESP 14; TEMP 98.2; O2SAT 95
[2023-10-11 07:03] LABS: BASOPHILS % (AUTO) 0.4 % (0-1); EOSINOPHILS # (AUTO) 0.3 X10'3 (0-0.9); EOSINOPHILS % (AUTO) 5.5 % (0-6); HEMATOCRIT 34.4 % (42.0-52.0); HEMOGLOBIN 11.7 g/dl (14.0-17.9); LYMPHOCYTES # (AUTO) 0.2 X10'3 (1.1-4.8); LYMPHOCYTES % (AUTO) 3.2 % (21-51); MEAN CORPUSCULAR HEMOGLOBIN 31.1 PG (27.0-31.0); MEAN CORPUSCULAR HGB CONC 34.2 g/dL (33.0-36.5); MEAN CORPUSCULAR VOLUME 90.8 FL (78-98); MONOCYTES # (AUTO) 0.3 X10'3 (0-0.9); MONOCYTES % (AUTO) 6.3 % (2-12); NEUTROPHILS # (AUTO) 4.5 X10'3 (1.8-7.7); NEUTROPHILS % (AUTO) 84.6 % (42-75); PLATELET COUNT 206 X10'3 (140-440); RED BLOOD COUNT 3.78 X10'6 (4.70-6.10); RED CELL DISTRIBUTION WIDTH 13.2 % (11.5-14.5); WHITE BLOOD COUNT 5.3 X10'3 (4.5-11.0)
[2023-10-11 08:00] VITALS: RESP 16; O2SAT 97
[2023-10-11 08:49] VITALS: BP_SYST 122; PULSE 74
[2023-10-11] MEDS: mag hydrox/Alum hydrox/simeth 30ml oral suspension PO PRN (14:14)
== END 2023-10-11 15:40 | disposition home health service (06) | DRG 468 ==
LOC: PAS IN 10:59 → ORTHO 4S 20:08
PROVIDERS: ADMIT Orthopaedic Surgery; ATTEND Orthopaedic Surgery
PROC: 0SRC0EZ Replacement of Right Knee Joint with Articulating Spacer, Open Approach (ICD-10-PCS; 2023-10-08)
PROC: 3E0T3BZ Introduction of Anesthetic Agent into Peripheral Nerves and Plexi, Percutaneous Approach (ICD-10-PCS; 2023-10-08)
PROC: 3E0T33Z Introduction of Anti-inflammatory into Peripheral Nerves and Plexi, Percutaneous Approach (ICD-10-PCS; 2023-10-08)
PROC: 0SPC0JZ Removal of Synthetic Substitute from Right Knee Joint, Open Approach (ICD-10-PCS; principal; 2023-10-08 16:05)
PROC: 02HV33Z Insertion of Infusion Device into Superior Vena Cava, Percutaneous Approach (ICD-10-PCS; 2023-10-11)
PROC: B548ZZA Ultrasonography of Superior Vena Cava, Guidance (ICD-10-PCS; 2023-10-11)
DX: T84.53XA Infection and inflammatory reaction due to internal right knee prosthesis, initial encounter (principal); Z96.651 Presence of right artificial knee joint; Y83.1 Surgical operation with implant of artificial internal device as the cause of abnormal reaction of the patient, or of later complication, without mention of misadventure at the time of the procedure; I10 Essential (primary) hypertension; M65.861 Other synovitis and tenosynovitis, right lower leg; Z88.1 Allergy status to other antibiotic agents; Y92.89 Other specified places as the place of occurrence of the external cause
CPT/HCPCS: 36415; 36569; 73560; 76942; 80048; 80053; 85025; 85651; 86140; 86703; 87015; 87070; 87075; 87077; 87081; 87186; 93005; A4615; A6253; A6258; A6449; C1751; G0378; J0690; J0692; J0735; J0878; J1170; J1885; J2250; J2405; J2795; J3010; J3260; J3370; J3480; J3490; J7120

== ENCOUNTER 2024-02-11 09:01 | Inpatient (IN) | payer BC ==
[2024-02-10] MEDS: DOCUMENT DATE & TIME OF BETA-BLOCKER PO ONE (05:30)
[~2024-02-11] VITALS: Ht 175.3 cm; Wt 85.4 kg
[2024-02-11] VITALS (20 sets, daily range): BP systolic 92–136; BP diastolic 58–98; PULSE 48–79; RESP 12–18; TEMP 96.8–98.2; O2SAT 92–100
[~2024-02-11 09:01] MED LIST changes: -BUPIVAcaine/PF 2.5mg/ml (0.25%) 10ml vial ONE
[2024-02-11] MEDS: famotidine 20mg tablet PO ONE (09:49)
[2024-02-11] MEDS: ringers solution, lacted 1,000 ML IV SCH ×2 (09:50→16:14)
[2024-02-11 09:52] LABS: BASOPHILS # (AUTO) 0.1 X10'3 (0-0.2); BASOPHILS % (AUTO) 0.9 % (0-1); EOSINOPHILS # (AUTO) 0.3 X10'3 (0-0.9); EOSINOPHILS % (AUTO) 3.9 % (0-6); LYMPHOCYTES # (AUTO) 1.9 X10'3 (1.1-4.8); MEAN CORPUSCULAR HEMOGLOBIN 30.1 PG (27.0-31.0); MEAN CORPUSCULAR HGB CONC 33.4 g/dL (33.0-36.5); MEAN CORPUSCULAR VOLUME 90.3 FL (78-98); MEAN PLATELET VOLUME 7.2 FL (7.4-10.4); MONOCYTES # (AUTO) 0.7 X10'3 (0-0.9); MONOCYTES % (AUTO) 9.3 % (2-12); NEUTROPHILS # (AUTO) 4.9 X10'3 (1.8-7.7); NEUTROPHILS % (AUTO) 61.9 % (42-75); PRE OP HEMATOCRIT 43.2 % (42.0-52.0); PRE OP HEMOGLOBIN 14.4 g/dL (14.0-17.9); PRE OP PLATELET COUNT 391 X10'3 (140-440); PRE OP WHITE BLOOD COUNT 7.9 10'3 (4.8-10.8); RED BLOOD COUNT 4.78 X10'6 (4.70-6.10); RED CELL DISTRIBUTION WIDTH 13.5 % (11.5-14.5)
[2024-02-11 10:10] LABS: ALBUMIN 2.9 G/DL (3.4-5.0); ALKALINE PHOSPHATASE 78 IU/L (46-116); C-REACTIVE PROTEIN 7.83 MG/DL (0.0-0.5); PRE OP ALT 39 U/L (30-65); PRE OP AST 31 U/L (10-37); PRE OP BILIRUB, TOTAL 0.6 MG/DL (0.0-1.0); TOTAL CARBON DIOXIDE 28.4 MMOL/L (24-32)
[2024-02-11 10:19] LABS: ALBUMIN/GLOBULIN RATIO 0.6 (1.1-1.5); BLOOD UREA NITROGEN 6 MG/DL (7-18); BUN/CREATININE RATIO 7.6 (10.0-20.0); CHLORIDE 103 MMOL/L (99-107); CREATININE 0.79 MG/DL (0.60-1.10); PRE OP ANION GAP 8 (8-16); PRE OP GLUCOSE 92 MG/DL (70-104); PRE OP POTASSIUM 4.1 MMOL/L (3.4-5.1); PRE OP SODIUM 139 MMOL/L (135-145); TOTAL PROTEIN 7.9 G/DL (6.4-8.2); eCRCL 103 ML/MIN; eGFR > 90 ML/MIN
[2024-02-11] MEDS ORDERED: BUPIVAcaine/dex-water/PF 7.5 mg/ml 2ml ampul ONE (11:48)
[2024-02-11] MEDS ORDERED: MIDAZolam 1mg/ml 10ml vial ONE (11:58)
[2024-02-11] MEDS ORDERED: labetalol 20mg/4ml (5mg/ml) syringe IV PRN (12:20)
[2024-02-11] MEDS ORDERED: meperidine/PF 25mg/ml syringe IV PRN ×2 (12:20)
[2024-02-11] MEDS ORDERED: morphine 4 MG/ML inj SYRINge IV PRN (12:20)
[2024-02-11] MEDS ORDERED: hydrALAZINE 20mg/ml inj. IV PRN (12:20)
[2024-02-11] MEDS ORDERED: proCHLORperazine 10 MG/2 ml inj IV PRN (12:20)
[2024-02-11] MEDS ORDERED: ondansetron/PF 4mg/2ml inj IV PRN ×2 (12:20→14:40)
[2024-02-11] MEDS ORDERED: morphine 2 MG/ML inj. syringe IV PRN (12:20)
[2024-02-11] MEDS ORDERED: propofol inj 20 ML IV ONE ×3 (12:22)
[2024-02-11] MEDS ORDERED: 0.9 % SODIUM CHLORIDE 10 ML VIAL ONE ×2 (12:22)
[2024-02-11] MEDS ORDERED: fentaNYL/PF 50MCG/1 ML 2ML syringe ONE (12:22)
[2024-02-11] MEDS ORDERED: dexamethasone sod phosphate 4mg/ml inj. ONE (12:23)
[2024-02-11] MEDS ORDERED: ROPIVAcaine 0.5% (5mg/ml) 30ml vial ONE (12:23)
[2024-02-11] MEDS ORDERED: bisacodyl 10mg suppository rectal RC PRN (14:40)
[2024-02-11] MEDS ORDERED: diphenhydrAMINE 25mg capsule PO PRN ×2 (14:40)
[2024-02-11] MEDS ORDERED: HYDROmorphone inj. 0.5 MG/0.5 ML DISP.SYRIN IV PRN (14:40)
[2024-02-11] MEDS ORDERED: magnesium hydroxide 30ml (MOM) UD suspension PO PRN (14:40)
[2024-02-11] MEDS ORDERED: HYDROmorphone 1 mg/ml syringe IV PRN (14:40)
[2024-02-11] MEDS ORDERED: acetaminophen 325mg tablet PO PRN (14:40)
[2024-02-11] MEDS ORDERED: naloxone 0.4 mg/ml inj IV PRN (14:40)
[2024-02-11] MEDS: ceFAZolin 1000mg inj IM ONE (14:44)
[2024-02-11] MEDS: meperidine/PF 25mg/ml syringe IV PRN (15:20)
[2024-02-11] MEDS: cefazolin 2gm/D5W 100mL 100 ML IV ONE (16:13)
[2024-02-11] MEDS: aspirin 325mg tablet PO SCH (16:13)
[2024-02-11] MEDS: ROPIVAcaine 0.5% (5mg/ml) 30ml vial ONE (16:14)
[2024-02-11] MEDS: acetaminophen 1,000mg/100ml IV 100 ML IV ONE (16:14)
[2024-02-11] MEDS: ketorolac trometh. 30mg/ml inj. ONE (16:14)
[2024-02-11] MEDS: DAPTOmycin 500mg inj IV ONE (16:15)
[2024-02-11] MEDS: ceFAZolin 1000mg inj ONE (16:15)
[2024-02-11] MEDS: gentamicin 40 MG/1 ML inj ONE (16:15)
[2024-02-11] MEDS: potassium cl 20mEq in 1/2 NS 1,000 ML IV SCH (16:16)
[2024-02-11] MEDS: oxyCODONE IR 5mg (immed. release) tablet PO PRN (16:36)
[2024-02-11] MEDS: cefepime 2g/NS 100ml ADVANTAGE 100 ML IV SCH (17:13)
[2024-02-11] MEDS: doxycycline inj 100 MG in normal saline 100ml IV soln 100 ML IV SCH (20:21)
[2024-02-11] MEDS: acetaminophen 325mg tablet PO SCH (20:21)
[2024-02-11] MEDS: sennosides 8.6mg tablet PO SCH (20:31)
[2024-02-12] VITALS (7 sets, daily range): BP systolic 97–104; BP diastolic 53–64; PULSE 63–99; RESP 15–18; TEMP 96.7–98.6; O2SAT 96–99
[2024-02-12 07:15] LABS: BASOPHILS # (AUTO) 0.1 X10'3 (0-0.2); BASOPHILS % (AUTO) 0.5 % (0-1); EOSINOPHILS % (AUTO) 0.2 % (0-6); HEMATOCRIT 34.6 % (42.0-52.0); HEMOGLOBIN 11.7 g/dl (14.0-17.9); LYMPHOCYTES # (AUTO) 0.3 X10'3 (1.1-4.8); LYMPHOCYTES % (AUTO) 2.5 % (21-51); MEAN CORPUSCULAR HEMOGLOBIN 30.4 PG (27.0-31.0); MEAN CORPUSCULAR HGB CONC 33.7 g/dL (33.0-36.5); MEAN CORPUSCULAR VOLUME 90.2 FL (78-98); MEAN PLATELET VOLUME 7.5 FL (7.4-10.4); MONOCYTES # (AUTO) 0.5 X10'3 (0-0.9); MONOCYTES % (AUTO) 3.5 % (2-12); NEUTROPHILS # (AUTO) 12.4 X10'3 (1.8-7.7); NEUTROPHILS % (AUTO) 93.3 % (42-75); PLATELET COUNT 317 X10'3 (140-440); RED BLOOD COUNT 3.83 X10'6 (4.70-6.10); RED CELL DISTRIBUTION WIDTH 12.9 % (11.5-14.5); WHITE BLOOD COUNT 13.3 X10'3 (4.5-11.0)
[2024-02-12 07:45] LABS: ANION GAP 7 (8-16); CHLORIDE 104 MMOL/L (99-107); POTASSIUM 4.3 MMOL/L (3.5-5.1); SODIUM 139 MMOL/L (135-145); TOTAL CARBON DIOXIDE 27.8 MMOL/L (24-32)
[2024-02-12] MEDS: losartan 50mg tablet PO SCH (08:18)
[2024-02-12] MEDS: metoprolol succinate 25mg (24-HOUR) SR. Tablet PO SCH (08:19)
[2024-02-12] MEDS: oxyCODONE IR 5mg (immed. release) tablet PO PRN (13:34)
[2024-02-12] MEDS: fluconazole 100mg tablet PO SCH (13:35)
[2024-02-12] MEDS: celeCOXIB 100mg capsule PO SCH (20:08)
[2024-02-13 06:00] VITALS: BP 99/66; PULSE 89; RESP 16; TEMP 98.4; O2SAT 98
[2024-02-13 07:38] LABS: MEAN CORPUSCULAR VOLUME 90.2 FL (78-98)
[2024-02-13 07:42] LABS: BASOPHILS % (AUTO) 0.2 % (0-1); EOSINOPHILS # (AUTO) 0.5 X10'3 (0-0.9); EOSINOPHILS % (AUTO) 7.2 % (0-6); HEMATOCRIT 33.4 % (42.0-52.0); HEMOGLOBIN 11.4 g/dl (14.0-17.9); LYMPHOCYTES # (AUTO) 0.4 X10'3 (1.1-4.8); LYMPHOCYTES % (AUTO) 6.1 % (21-51); MEAN CORPUSCULAR HEMOGLOBIN 30.7 PG (27.0-31.0); MEAN PLATELET VOLUME 7.7 FL (7.4-10.4); MONOCYTES # (AUTO) 0.4 X10'3 (0-0.9); MONOCYTES % (AUTO) 5.2 % (2-12); NEUTROPHILS # (AUTO) 5.9 X10'3 (1.8-7.7); NEUTROPHILS % (AUTO) 81.3 % (42-75); PLATELET COUNT 278 X10'3 (140-440); RED CELL DISTRIBUTION WIDTH 13.2 % (11.5-14.5); WHITE BLOOD COUNT 7.3 X10'3 (4.5-11.0)
[2024-02-13] MEDS: NORMAL SALINE IV SCH (08:34)
[2024-02-13] MEDS: DAPTOMYCIN IV SCH (08:34)
[2024-02-13 18:00] VITALS: BP 101/54; PULSE 77; RESP 14; TEMP 98.2; O2SAT 97
[2024-02-13 22:29] VITALS: BP 103/63; PULSE 16; RESP 16; TEMP 96.8; O2SAT 93
[2024-02-13] MEDS: acetaminophen 325mg tablet PO PRN (23:35)
[2024-02-14 06:00] VITALS: BP 122/76; PULSE 80; RESP 14; TEMP 98; O2SAT 97
[2024-02-14 07:07] LABS: BASOPHILS % (AUTO) 0.4 % (0-1); EOSINOPHILS # (AUTO) 0.5 X10'3 (0-0.9); EOSINOPHILS % (AUTO) 9.7 % (0-6); HEMOGLOBIN 11.2 g/dl (14.0-17.9); LYMPHOCYTES # (AUTO) 0.4 X10'3 (1.1-4.8); LYMPHOCYTES % (AUTO) 7.5 % (21-51); MEAN CORPUSCULAR HEMOGLOBIN 30.5 PG (27.0-31.0); MEAN CORPUSCULAR HGB CONC 33.9 g/dL (33.0-36.5); MEAN CORPUSCULAR VOLUME 90.2 FL (78-98); MEAN PLATELET VOLUME 7.7 FL (7.4-10.4); MONOCYTES # (AUTO) 0.2 X10'3 (0-0.9); MONOCYTES % (AUTO) 3.7 % (2-12); NEUTROPHILS # (AUTO) 4.2 X10'3 (1.8-7.7); NEUTROPHILS % (AUTO) 78.7 % (42-75); PLATELET COUNT 306 X10'3 (140-440); RED BLOOD COUNT 3.66 X10'6 (4.70-6.10); RED CELL DISTRIBUTION WIDTH 13.1 % (11.5-14.5); WHITE BLOOD COUNT 5.3 X10'3 (4.5-11.0)
[2024-02-14 10:00] VITALS: BP 105/70; PULSE 81; RESP 18; TEMP 97.3; O2SAT 100
== END 2024-02-14 17:25 | disposition home health service (06) | DRG 487 ==
LOC: PAS IN 09:01 → ORTHO 4S 16:14
PROVIDERS: ADMIT Orthopaedic Surgery; ATTEND Orthopaedic Surgery
PROC: 0SPC08Z Removal of Spacer from Right Knee Joint, Open Approach (ICD-10-PCS; 2024-02-11)
PROC: 3E0T3BZ Introduction of Anesthetic Agent into Peripheral Nerves and Plexi, Percutaneous Approach (ICD-10-PCS; 2024-02-11)
PROC: 0SHC08Z Insertion of Spacer into Right Knee Joint, Open Approach (ICD-10-PCS; principal; 2024-02-11 11:48)
DX: T84.53XA Infection and inflammatory reaction due to internal right knee prosthesis, initial encounter (principal); Z96.651 Presence of right artificial knee joint; D72.829 Elevated white blood cell count, unspecified; L91.0 Hypertrophic scar; X58.XXXA Exposure to other specified factors, initial encounter; Y83.8 Other surgical procedures as the cause of abnormal reaction of the patient, or of later complication, without mention of misadventure at the time of the procedure; Z88.1 Allergy status to other antibiotic agents; Y92.89 Other specified places as the place of occurrence of the external cause
CPT/HCPCS: Z7506; Z7508; 36415; 80051; 80053; 82948; 85025; 85651; 86140; 87070; 87075; 87077; 87081; 87102; 87186; 97161; 97530; A4215; A6258; A6454; A7000; C1713; C1776; G0378; J0690; J0692; J0735; J0878; J1100; J1580; J1885; J2175; J2250; J2704; J2795; J3010; J3480; J3490; J7040; J7120

== ENCOUNTER 2024-02-27 11:47 | Emergency (ER) | payer BC ==
[~2024-02-27] VITALS: Ht 177.8 cm; Wt 80.0 kg
[2024-02-27] MEDS: ondansetron/PF 4mg/2ml inj IV ONE (12:23)
[2024-02-27] MEDS: morphine 4 MG/ML inj SYRINge IV ONE (12:23)
[2024-02-27 12:47] LABS: BASOPHILS # (AUTO) 0.1 X10'3 (0-0.2); BASOPHILS % (AUTO) 0.6 % (0-1); EOSINOPHILS % (AUTO) 0.4 % (0-6); HEMATOCRIT 35.6 % (42.0-52.0); HEMOGLOBIN 11.8 g/dl (14.0-17.9); LYMPHOCYTES # (AUTO) 0.5 X10'3 (1.1-4.8); LYMPHOCYTES % (AUTO) 4.4 % (21-51); MEAN CORPUSCULAR VOLUME 90.9 FL (78-98); MEAN PLATELET VOLUME 7.8 FL (7.4-10.4); MONOCYTES # (AUTO) 0.6 X10'3 (0-0.9); MONOCYTES % (AUTO) 4.9 % (2-12); NEUTROPHILS # (AUTO) 10.5 X10'3 (1.8-7.7); NEUTROPHILS % (AUTO) 89.7 % (42-75); PLATELET COUNT 310 X10'3 (140-440); RED BLOOD COUNT 3.92 X10'6 (4.70-6.10); RED CELL DISTRIBUTION WIDTH 13.6 % (11.5-14.5); WHITE BLOOD COUNT 11.7 X10'3 (4.5-11.0)
[2024-02-27 13:14] LABS: ALANINE AMINOTRANSFERASE 23 U/L (12-78); ALBUMIN 3.2 G/DL (3.4-5.0); ALBUMIN/GLOBULIN RATIO 0.8 (1.1-1.5); ALKALINE PHOSPHATASE 92 IU/L (46-116); ANION GAP 12 (8-16); ASPARTATE AMINO TRANSFERASE 19 U/L (10-37); BILIRUBIN,TOTAL 1.1 MG/DL (0.1-1.0); BLOOD UREA NITROGEN 8 MG/DL (7-18); BUN/CREATININE RATIO 10.3 (10.0-20.0); CALCIUM 8.9 MG/DL (8.5-10.1); CHLORIDE 101 MMOL/L (99-107); CREATININE 0.78 MG/DL (0.60-1.10); GLUCOSE 111 MG/DL (70-104); POTASSIUM 3.7 MMOL/L (3.5-5.1); SODIUM 136 MMOL/L (135-145); TOTAL CARBON DIOXIDE 23.5 MMOL/L (24-32); TOTAL PROTEIN 7.4 G/DL (6.4-8.2); eCRCL 108 ML/MIN; eGFR > 90 ML/MIN
[2024-02-27 14:07] VITALS: BP 117/79; PULSE 103; RESP 17; TEMP 98.1; O2SAT 93
== END 2024-02-27 14:36 | disposition home or self-care (01) ==
LOC: ER 11:47
DX: M25.561 Pain in right knee (principal); R11.2 Nausea with vomiting, unspecified; Z88.8 Allergy status to other drugs, medicaments and biological substances; Z79.899 Other long term (current) drug therapy
CPT/HCPCS: 36415; 71045; 80053; 83605; 84145; 85025; 87040; 87070; 96374; 96375; 99284; J2270; J2405; 87077; 87186

== ENCOUNTER 2024-03-04 08:36 | Inpatient (IN) | payer BC ==
[2024-03-04] VITALS (29 sets, daily range): BP systolic 90–115; BP diastolic 49–76; PULSE 57–82; RESP 11–17; TEMP 98.3–98.6; O2SAT 95–100
[~2024-03-04] VITALS: Ht 172.7 cm; Wt 84.0 kg
[2024-03-04] MEDS: ringers solution, lacted 1,000 ML IV SCH ×3 (05:30→15:35)
[2024-03-04] MEDS: cefazolin 2gm/D5W 100mL 100 ML IV ONE (05:30)
[2024-03-04] MEDS: famotidine 20mg tablet PO ONE (11:44)
[2024-03-04] MEDS: HYDROcodone/acetaminophen 10/325mg tab PO ONE (11:44)
[2024-03-04] MEDS: tranexamic acid 650mg tablet PO ONE (11:45)
[2024-03-04] MEDS ORDERED: BUPIVAcaine/dex-water/PF 7.5 mg/ml 2ml ampul ONE (13:30)
[2024-03-04] MEDS: acetaminophen 1,000mg/100ml IV 100 ML IV ONE (13:31)
[2024-03-04] MEDS ORDERED: MIDAZolam 5mg/ml 2ml vial ONE (13:38)
[2024-03-04] MEDS ORDERED: fentaNYL/PF 50MCG/1 ML 2ML syringe ONE (13:38)
[2024-03-04] MEDS ORDERED: propofol inj 20 ML IV ONE (13:55)
[2024-03-04] MEDS ORDERED: albumin (Human) 5% 250ml 250 ML IV ONE (15:03)
[2024-03-04] MEDS ORDERED: ROPIVAcaine 0.5% (5mg/ml) 30ml vial ONE (15:11)
[2024-03-04] MEDS ORDERED: ondansetron/PF 4mg/2ml inj IV PRN ×2 (15:35→17:00)
[2024-03-04] MEDS ORDERED: morphine 4 MG/ML inj SYRINge IV PRN (15:35)
[2024-03-04] MEDS ORDERED: enalaprilat dihydrate 2.5mg/2ml vial IV PRN (15:35)
[2024-03-04] MEDS ORDERED: meperidine/PF 25mg/ml syringe IV PRN ×3 (15:35)
[2024-03-04] MEDS ORDERED: labetalol 20mg/4ml (5mg/ml) syringe IV PRN (15:35)
[2024-03-04] MEDS ORDERED: proCHLORperazine 10 MG/2 ml inj IV PRN (15:35)
[2024-03-04] MEDS ORDERED: morphine 2 MG/ML inj. syringe IV PRN (15:35)
[2024-03-04] MEDS ORDERED: naloxone 0.4 mg/ml inj IV PRN (17:00)
[2024-03-04] MEDS ORDERED: oxyCODONE IR 5mg (immed. release) tablet PO PRN (17:00)
[2024-03-04] MEDS ORDERED: HYDROcodone/acetaminophen 10/325mg tab PO PRN (17:00)
[2024-03-04] MEDS ORDERED: bisacodyl 10mg suppository rectal RC PRN (17:00)
[2024-03-04] MEDS ORDERED: magnesium hydroxide 30ml (MOM) UD suspension PO PRN (17:00)
[2024-03-04] MEDS ORDERED: HYDROmorphone 1 mg/ml syringe IV PRN (17:00)
[2024-03-04] MEDS ORDERED: HYDROmorphone inj. 0.5 MG/0.5 ML DISP.SYRIN IV PRN (17:00)
[2024-03-04] MEDS: potassium cl 20mEq in 1/2 NS 1,000 ML IV SCH (19:31)
[2024-03-04] MEDS: HYDROcodone/acetaminophen 10/325mg tab PO PRN (19:31)
[2024-03-04] MEDS: sennosides 8.6mg tablet PO SCH (20:53)
[2024-03-04] MEDS: ciprofloxacin 250mg tablet PO SCH (20:53)
[2024-03-04] MEDS: diatr meglu/diatrizoate 30ml oral sol.-(3 dose) bottle PO SCH (20:53)
[2024-03-04] MEDS: acetaminophen 325mg tablet PO SCH (20:53)
[2024-03-04] MEDS: ceFAZolin/D5W- 1GM premix 50 ML IV SCH (23:58)
[2024-03-05] VITALS (20 sets, daily range): BP systolic 98–138; BP diastolic 49–83; PULSE 64–90; RESP 12–20; TEMP 96.7–98.6; O2SAT 95–99
[2024-03-05 07:41] LABS: BASOPHILS % (AUTO) 0.3 % (0-1); EOSINOPHILS % (AUTO) 0.1 % (0-6); HEMATOCRIT 31.2 % (42.0-52.0); HEMOGLOBIN 10.3 g/dl (14.0-17.9); LYMPHOCYTES # (AUTO) 1.3 X10'3 (1.1-4.8); LYMPHOCYTES % (AUTO) 14.1 % (21-51); MEAN CORPUSCULAR HEMOGLOBIN 29.9 PG (27.0-31.0); MEAN CORPUSCULAR HGB CONC 33.1 g/dL (33.0-36.5); MEAN CORPUSCULAR VOLUME 90.5 FL (78-98); MEAN PLATELET VOLUME 7.4 FL (7.4-10.4); MONOCYTES # (AUTO) 1.1 X10'3 (0-0.9); MONOCYTES % (AUTO) 11.9 % (2-12); NEUTROPHILS # (AUTO) 6.6 X10'3 (1.8-7.7); NEUTROPHILS % (AUTO) 73.6 % (42-75); PLATELET COUNT 426 X10'3 (140-440); RED BLOOD COUNT 3.45 X10'6 (4.70-6.10); RED CELL DISTRIBUTION WIDTH 13.7 % (11.5-14.5)
[2024-03-05 08:11] LABS: ANION GAP 7 (8-16); CHLORIDE 104 MMOL/L (99-107); CREATINE KINASE 13 U/L (39-308); POTASSIUM 4.7 MMOL/L (3.5-5.1); SODIUM 138 MMOL/L (135-145); TOTAL CARBON DIOXIDE 27.5 MMOL/L (24-32)
[2024-03-05] MEDS: aspirin 325mg tablet PO SCH (08:30)
[2024-03-05] MEDS: DAPTOmycin inj. 500 MG in normal saline 100ml IV soln 100 ML IV SCH (08:47)
[2024-03-05] MEDS: losartan 50mg tablet PO SCH (10:20)
[2024-03-05] MEDS: metoprolol succinate 25mg (24-HOUR) SR. Tablet PO SCH (10:20)
[2024-03-05] MEDS ORDERED: iohexol 300mg/ml 100ml inj. ONE (10:31)
[2024-03-05] MEDS ORDERED: propofol inj 20 ML IV ONE ×2 (12:36)
[2024-03-05] MEDS ORDERED: meperidine/PF 25mg/ml syringe IV PRN ×3 (12:50)
[2024-03-05] MEDS ORDERED: proCHLORperazine 10 MG/2 ml inj IV PRN (12:50)
[2024-03-05] MEDS ORDERED: morphine 2 MG/ML inj. syringe IV PRN (12:50)
[2024-03-05] MEDS ORDERED: ondansetron/PF 4mg/2ml inj IV PRN (12:50)
[2024-03-05] MEDS: acetaminophen 1,000mg/100ml IV 100 ML IV ONE (13:06)
[2024-03-05] MEDS: ringers solution, lacted 1,000 ML IV SCH (19:00)
[2024-03-05] MEDS: morphine 4 MG/ML inj SYRINge IV PRN (19:58)
[2024-03-05] MEDS: diphenhydrAMINE 25mg capsule PO PRN (19:59)
[2024-03-05] MEDS: celeCOXIB 100mg capsule PO SCH (20:07)
[2024-03-06 04:46] LABS: BASOPHILS % (AUTO) 0.8 % (0-1); EOSINOPHILS # (AUTO) 0.1 X10'3 (0-0.9); EOSINOPHILS % (AUTO) 1.1 % (0-6); HEMATOCRIT 25.2 % (42.0-52.0); HEMOGLOBIN 8.4 g/dl (14.0-17.9); LYMPHOCYTES % (AUTO) 43.2 % (21-51); MEAN CORPUSCULAR HEMOGLOBIN 29.8 PG (27.0-31.0); MEAN CORPUSCULAR HGB CONC 33.1 g/dL (33.0-36.5); MONOCYTES # (AUTO) 0.5 X10'3 (0-0.9); MONOCYTES % (AUTO) 10.6 % (2-12); NEUTROPHILS # (AUTO) 2.1 X10'3 (1.8-7.7); NEUTROPHILS % (AUTO) 44.3 % (42-75); PLATELET COUNT 312 X10'3 (140-440); RED CELL DISTRIBUTION WIDTH 13.5 % (11.5-14.5); WHITE BLOOD COUNT 4.7 X10'3 (4.5-11.0)
[2024-03-06] MEDS: oxyCODONE IR 5mg (immed. release) tablet PO PRN (06:46)
[2024-03-06 11:00] VITALS: BP 111/57; PULSE 59; RESP 14; TEMP 96.9; O2SAT 96
[2024-03-06] MEDS: acetaminophen 325mg tablet PO PRN (17:05)
[2024-03-06 18:00] VITALS: BP 110/57; PULSE 60; RESP 14; TEMP 97.3; O2SAT 97
[2024-03-06] MEDS: diphenhydrAMINE 25mg capsule PO PRN (18:14)
[2024-03-06 22:00] VITALS: BP 114/67; PULSE 93; RESP 18; TEMP 97.9; O2SAT 98
[2024-03-06 23:08] VITALS: BP 116/69; PULSE 61; RESP 18; TEMP 98.1
[2024-03-06 23:27] VITALS: BP 91/52; PULSE 53; RESP 16; TEMP 98
[2024-03-07] VITALS (26 sets, daily range): BP systolic 96–133; BP diastolic 53–84; PULSE 47–80; RESP 9–18; TEMP 97.7–98.5; O2SAT 96–100
[2024-03-07 06:25] LABS: BASOPHILS # (AUTO) 0.1 X10'3 (0-0.2); BASOPHILS % (AUTO) 1.2 % (0-1); EOSINOPHILS # (AUTO) 0.3 X10'3 (0-0.9); EOSINOPHILS % (AUTO) 4.1 % (0-6); HEMATOCRIT 30.7 % (42.0-52.0); HEMOGLOBIN 10.2 g/dl (14.0-17.9); LYMPHOCYTES # (AUTO) 2.7 X10'3 (1.1-4.8); LYMPHOCYTES % (AUTO) 43.1 % (21-51); MEAN CORPUSCULAR HEMOGLOBIN 29.7 PG (27.0-31.0); MEAN CORPUSCULAR HGB CONC 33.2 g/dL (33.0-36.5); MEAN CORPUSCULAR VOLUME 89.4 FL (78-98); MEAN PLATELET VOLUME 6.8 FL (7.4-10.4); MONOCYTES # (AUTO) 0.5 X10'3 (0-0.9); MONOCYTES % (AUTO) 8.8 % (2-12); NEUTROPHILS # (AUTO) 2.7 X10'3 (1.8-7.7); NEUTROPHILS % (AUTO) 42.8 % (42-75); PLATELET COUNT 306 X10'3 (140-440); RED BLOOD COUNT 3.43 X10'6 (4.70-6.10); RED CELL DISTRIBUTION WIDTH 13.8 % (11.5-14.5); WHITE BLOOD COUNT 6.2 X10'3 (4.5-11.0)
[2024-03-07 07:00] LABS: TOTAL CELLS COUNTED 100
[2024-03-07 07:01] LABS: PLATELET ESTIMATE NORMAL
[2024-03-07] MEDS ORDERED: fentaNYL/PF 50MCG/1 ML 2ML syringe ONE (07:29)
[2024-03-07] MEDS ORDERED: MIDAZolam 1 MG/ML 5ML VIAL ONE (07:30)
[2024-03-07] MEDS ORDERED: enalaprilat dihydrate 2.5mg/2ml vial IV PRN (07:45)
[2024-03-07] MEDS ORDERED: labetalol 20mg/4ml (5mg/ml) syringe IV PRN (07:45)
[2024-03-07] MEDS ORDERED: morphine 2 MG/ML inj. syringe IV PRN (07:45)
[2024-03-07] MEDS: ringers solution, lacted 1,000 ML IV SCH (07:45)
[2024-03-07] MEDS ORDERED: meperidine/PF 25mg/ml syringe IV PRN ×3 (07:45)
[2024-03-07] MEDS ORDERED: morphine 4 MG/ML inj SYRINge IV PRN (07:45)
[2024-03-07] MEDS ORDERED: ondansetron/PF 4mg/2ml inj IV PRN (07:45)
[2024-03-07] MEDS ORDERED: proCHLORperazine 10 MG/2 ml inj IV PRN (07:45)
[2024-03-07] MEDS: CIPROFLOXACIN 400MG/200ML premix IV SCH (08:51)
[2024-03-07] MEDS: DAPTOmycin 500mg inj IV ONE (08:55)
[2024-03-07] MEDS ORDERED: ROPIVAcaine 0.5% (5mg/ml) 30ml vial ONE (09:49)
[2024-03-07] MEDS ORDERED: dexamethasone sod phosphate 4mg/ml inj. ONE (09:49)
[2024-03-07] MEDS: acetaminophen 325mg tablet PO PRN (13:26)
[2024-03-08 02:00] VITALS: BP 133/67; PULSE 55; RESP 17; TEMP 97.7; O2SAT 96
[2024-03-08 06:00] VITALS: BP 128/73; PULSE 75; RESP 18; TEMP 97.9; O2SAT 100
[2024-03-08 07:50] VITALS: RESP 18; O2SAT 100
[2024-03-08 10:30] VITALS: BP 110/59; PULSE 73; RESP 18; TEMP 97.9; O2SAT 94
[2024-03-08] MEDS ORDERED: CIPR750T14 PO (12:37)
[2024-03-08] MEDS ORDERED: ciprofloxacin 250mg tablet PO SCH (22:00)
== END 2024-03-08 12:58 | disposition home or self-care (01) | DRG 488 ==
LOC: PAS IN 09:37 → ORTHO 4S 18:55
PROVIDERS: ADMIT Orthopaedic Surgery; ATTEND Orthopaedic Surgery
PROC: 0SPC08Z Removal of Spacer from Right Knee Joint, Open Approach (ICD-10-PCS; 2024-03-04)
PROC: 0QBJ0ZZ Excision of Right Fibula, Open Approach (ICD-10-PCS; 2024-03-04)
PROC: 0QBG0ZZ Excision of Right Tibia, Open Approach (ICD-10-PCS; 2024-03-04)
PROC: BW211ZZ Computerized Tomography (CT Scan) of Abdomen and Pelvis using Low Osmolar Contrast (ICD-10-PCS; 2024-03-05)
PROC: 30233N1 Transfusion of Nonautologous Red Blood Cells into Peripheral Vein, Percutaneous Approach (ICD-10-PCS; 2024-03-06)
PROC: 3E0U029 Introduction of Other Anti-infective into Joints, Open Approach (ICD-10-PCS; 2024-03-07)
PROC: 3E0R3BZ Introduction of Anesthetic Agent into Spinal Canal, Percutaneous Approach (ICD-10-PCS; 2024-03-07)
PROC: 0SRD0EZ Replacement of Left Knee Joint with Articulating Spacer, Open Approach (ICD-10-PCS; principal; 2024-03-07 07:35)
DX: T84.59XA Infection and inflammatory reaction due to other internal joint prosthesis, initial encounter (principal); M00.9 Pyogenic arthritis, unspecified; T81.31XA Disruption of external operation (surgical) wound, not elsewhere classified, initial encounter; Y83.1 Surgical operation with implant of artificial internal device as the cause of abnormal reaction of the patient, or of later complication, without mention of misadventure at the time of the procedure; Y92.89 Other specified places as the place of occurrence of the external cause; Z88.1 Allergy status to other antibiotic agents; Z79.2 Long term (current) use of antibiotics
CPT/HCPCS: Z7506; Z7508; 36415; 36430; 74177; 80051; 82550; 85007; 85025; 85651; 86140; 86885; 86900; 86901; 86920; 87070; 87075; 87077; 87081; 87102; 87186; A4215; A6253; A6258; A6446; A6449; A6454; A7000; C1713; C1776; G0378; J0131; J0690; J0744; J0878; J1100; J2250; J2270; J2704; J2795; J3010; J3480; J3490; J7030; J7040; J7120; P9016; P9045; Q0163; Q9963; Q9967